=== PATIENT | male | born 1980 | race Two or more races ===

== ENCOUNTER 2021-06-26 05:05 | Inpatient (IN) | payer OTHER, SELFPAY ==
[2021-06-26] VITALS (9 sets, daily range): BP systolic 112–140; BP diastolic 59–84; PULSE 84–95; RESP 11–18; TEMP 38.7–38.8; O2SAT 95–100; BMI 24.8
--- NOTE | ~2021-06-26 | XR_ITS ---
EXAMINATION: XR FEMUR, RIGHT CLINICAL INFORMATION: Pain and swelling COMPARISON: None TECHNIQUE: 2 lateral views of the right femur were obtained. XR/XR femur RT 2V FINDINGS/IMPRESSION: Lateral plate and screws present along the femur transfixing a healed fracture and residual deformity of the diaphysis. Multiple screws present within the distal femur. No evidence of hardware failure or complication. Soft tissues unremarkable.
--- NOTE | ~2021-06-26 | XR_ITS ---
EXAMINATION: XR HAND, RIGHT CLINICAL INFORMATION: Right hand infection COMPARISON: None TECHNIQUE: PA, lateral, and oblique views of the right hand. FINDINGS: No visible acute fracture or dislocation. There appears be soft tissue swelling of the hand. No definite air is seen in the soft tissues. No bony erosive changes of cortical irregularity is identified. Alignment is anatomic. Joint spaces are maintained. Chronic-appearing 2 mm calcification along the radial aspect of the fourth proximal phalanx shaft.. XR/XR hand RT min 3V IMPRESSION: No radiographic evidence of definite osteomyelitis. Suspected soft tissue swelling. Further evaluation with MRI can be obtained, as clinically warranted.
--- NOTE | ~2021-06-26 | XR_ITS ---
EXAMINATION: XR KNEE, RIGHT CLINICAL INFORMATION: Can't bend knee. COMPARISON: None TECHNIQUE: Two views of the right knee. FINDINGS: Plate and screw fixation hardware placed separate cannulated screws are in place at the distal femur. There is prior healed distal femoral diaphyseal fracture. No acute fractures are seen. Alignment of the distal femur and proximal tibia is grossly maintained. Alignment of the patella with the distal femur is not well evaluated on these images. No joint effusion. The soft tissues appear unremarkable. XR/XR knee RT 3V IMPRESSION: No acute fracture. Alignment of the patella with the distal femur is not well evaluated on these images. The tibia and femur are appropriately aligned.
--- NOTE | ~2021-06-26 | MR_ITS ---
EXAMINATION: MRI HAND WITHOUT AND WITH CONTRAST, RIGHT CLINICAL INFORMATION: GAS bacteremia. Evaluate for necrotizing soft tissue infection. COMPARISON: Right hand radiographs dated 06/27/2021. TECHNIQUE: Multisequence MR imaging of the right hand was obtained before and after the IV administration of 7 mL Gadavist contrast on a high-field strength scanner. FINDINGS: There is prominent metallic artifact centered within the soft tissues along the radial aspect of the 4th proximal phalangeal base, corresponding to the previously seen 0.2 cm density on the prior radiograph. Findings likely represent a foreign body. Metallic artifact somewhat limits evaluation of soft tissue structures; however, there is dorsal subcutaneous edema along the metacarpals, more prominent radially. There is no organized fluid collection or evidence of abscess formation. This area demonstrates minimal if any postcontrast enhancement; however, evaluation is limited due to prominent metallic artifact. No abnormal soft tissue mass. The visualized flexor and extensor tendons are intact without evidence of acute injury. The collateral ligaments are grossly intact. No abnormal marrow signal. No evidence of acute osseous injury. No fracture or dislocation. No abnormal marrow enhancement. MR/MR hand RT wo/w con IMPRESSION: 1. Prominent metallic artifact along the radial aspect of the 4th proximal phalangeal base corresponding to the previously seen density on prior radiographs. Findings are consistent with a radiopaque foreign body which measures approximately 0.2 cm. Artifact significantly limits evaluation of the adjacent soft tissue structures. 2. Subcutaneous edema along the dorsal hand, most prominent radially. Minimal if any postcontrast enhancement; however, evaluation limited due to artifact. Findings could represent edema versus mild cellulitis. No abscess formation. 3. No osseous abnormality.
--- NOTE | 2021-06-26 05:48 | PC.NURSE ---
pt to room, chg into gown and awaiting MD's eval. X-ray in room for knee x-ray. Pt crying in pain when moving leg. Pt c/o extreme pain to right knee area which radiates down leg. Pt arrives alert, respirations easy, n/l. skin w/d. will continue to monitor pt.
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
[2021-06-26] MEDS: HYDROmorphone HCl 2 MG/ML VIAL IM (07:07)
[2021-06-26] MEDS: ondansetron HCL 4 MG/2 ML VIAL IVPUSH (07:08)
[2021-06-26 07:27] LABS: MANUAL DIFF FLAG NO
[2021-06-26] MEDS: SODIUM CHLORIDE 2094 ML IV (07:33)
[2021-06-26 07:38] LABS: INTERNATIONAL NORM RATIO 1.1 (0.9-1.1)
[2021-06-26 07:40] LABS: Partial Thromboplastin Time 30.5 SEC (24.1-38.0)
[2021-06-26 07:42] LABS: Lactic Acid 0.9 mmol/L (0.5-2.0)
[2021-06-26 07:47] LABS: COVID-19 Test Negative (Negative); IDNOW Serial# 16C4AD1C
[2021-06-26 07:56] LABS: Basophils Percent Auto 0.2 % (0-2); Eosinophils Percent Auto 0.1 % (0-4); Hematocrit 39.9 % (42.0-52.0); Hemoglobin 13.2 g/dl (14.0-18.0); Imm Gran Abs Auto 0.07 X10*3/uL (0.00-0.03); Imm Gran Pct Auto 0.4 % (0.0-0.4); Lymphocytes Absolute Auto 0.5 X10*3/uL (1.2-4.9); Lymphocytes Percent Auto 2.9 % (20-40); Mean Corpuscular HGB Conc 33.1 g/dl (31.0-36.0); Mean Corpuscular Hemoglobin 27.7 pg (27.0-33.0); Mean Corpuscular Volume 83.8 fL (80.0-98.0); Mean Platelet Volume 10.6 fL (9.4-12.4); Monocytes Absolute Auto 1.2 X10*3/uL (0.1-1.2); Monocytes Percent Auto 6.7 % (2-11); Neutrophils Absolute Auto 15.3 x10*3/uL (2.0-8.3); Neutrophils Percent Auto 89.7 % (45-73); Platelet Count 221 X10*3/uL (160-400); Red Blood Count 4.76 X10*6/uL (4.60-5.80); Red Cell Distribution Width 12.9 % (11.0-16.0); White Blood Count 17.1 X10*3/uL (4.8-10.8)
[2021-06-26] MEDS: HYDROmorphone HCl 2 MG/ML VIAL IVPUSH (08:11)
--- NOTE | 2021-06-26 08:21 | PC.NURSE ---
this literary writer assumed care of this pt at 0730. iv established prior to this literary writer's arrival on shift. fluids hung by this literary writer, med given by this literary writer as documented, vss. This literary writer made 2 attempts to verify pt's stated Methadone dose of 50mg, Methadone clinic did not vegetable picker, will reattempt. will continue to monitor.
[2021-06-26 08:22] LABS: Erythrocyte Sedimentation Rate 8 MM/HR (0-15)
[2021-06-26] MEDS: Ketamine HCl/NS 50 MG/5 ML SYRINGE 140 MG IVPUSH (08:52)
[2021-06-26] MEDS: Lidocaine HCl 1 % MPF 5 ML VIAL INFILTRATI (09:15)
[2021-06-26] MEDS: methADONE HCl 20 MG/2 ML ORAL.CONC 50 MG PO (09:17)
[2021-06-26 09:45] LABS: Alanine Aminotransferase 67 U/L (0-40); Albumin Level 4.1 g/dL (3.5-5.0); Alkaline Phosphatase 196 U/L (39-117); Anion Gap 18 (12-20); Aspartate Amino Transferase 47 U/L (5-37); Bilirubin Total 1.3 mg/dL (0.0-1.0); Blood Urea Nitrogen 9 mg/dL (9-16); Calcium 9.1 mg/dL (8.4-10.2); Carbon Dioxide 22 mmol/L (22-29); Chloride 99 mmol/L (96-108); Creatinine Clr Calc Pharmacy 118.5; Estimated Glomerular Filt Rate > 60; Glucose Random 121 mg/dL (60-115); Lipase 7 U/L (8-78); Potassium 4.2 mmol/L (3.3-5.1); Sodium 135 mmol/L (135-145); Total Protein 7.7 g/dL (6.5-8.0)
[2021-06-26] MEDS: cefTRIAXone sodium 1 GM in 0.9 % Sodium Chloride 50 ML IV (09:51)
[2021-06-26] MEDS: HYDROmorphone HCl 1 MG/ML SYRINGE IVPUSH (09:57)
[2021-06-26] MEDS: vancomycin HCL 1,000 MG in 0.9 % Sodium Chloride 250 ML 270 MG IV ×2 (10:18→21:16)
--- NOTE | 2021-06-26 11:00 | PC.NURSE ---
pt pre-medicated prior to fluid aspiration from right knee. Dr. Daley performed procedure. pre and post vs obtained as documented. vss after procedure. pt placed on 2L n/c with capnography satting 98 - 100%, ET 30. Respiratory Therapist at bedside during procedure. pt NS on the monitor. All consents obtained and signed with Staff spanish interpreter present. Pt difficult stick, LEJ placed by Dr. Daley (18g), iv flushes without difficulty, pt tolerated well. will continue to monitor.
--- NOTE | 2021-06-26 11:07 | PHA.MEDREC ---
Pharmacy Consult ? Medication Reconciliation Pharmacy has completed the medication reconciliation. Spoke with patient in ED via petroleum inspector. Patient reports taking trazodone and clonidine but has not taken in approximately 1 week. He also is on methadone and goes to a clinic on [facility] in [place].
--- NOTE | 2021-06-26 11:12 | PHA.PROG ---
Admission Date/Time: June 26, 2021 10:45 Indication: SKIN AND SKIN STRUCTURE Weight in k.8 kg Adjusted body weight in Kg: [place] body weight in K.8 Obesity Dosing Indication % IBW: Serum Creatinine - Last 168 Hours 06/26/21 09:16 Creatinine 0.74 Estimated CrCl and GFR - Last 168 Hours 06/26/21 09:16 Estim Creat Clear Calc 118.5 Estimated GFR > 60 Vancomycin Loading Dose: FIRST DOSE ALREADY GIVEN IN ED Current Vancomycin Dosing Regimen:1000 MG Q12 HRS Vancomycin Monitoring using AUC goal of 400 - 600 range with trough as surrogate marker: PREDICTED AUC 415 Date and Time for next Vancomycin Level to be drawn: Pharmacist Comments on Vancomycin Plan: Vancomycin dosing will take advantage of [employer] as a clinical decision support tool that uses Bayesian modeling to calculate individual patient's pharmacokinetic parameters and forecast the patient's drug concentration time course with the target goal AUC 24 range of 400 - 600 mg/L/hr.
[2021-06-26] MEDS: Enoxaparin Sodium 40 MG/0.4 ML SYRINGE SUBCUT (11:25)
[2021-06-26] MEDS: Piperacillin Sodium/Tazobactam 4.5 GM in 0.9 % Sodium Chloride 100 ML IV ×2 (12:05→18:00)
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
[2021-06-26] MEDS: 0.9 % Sodium Chloride Flush 3 ML SYRINGE IVFLUSH (16:53)
--- NOTE | 2021-06-26 19:00 | PC.NURSE ---
Pt is A&Ox3, LCA, R hand redness and swelling, pt detective precinct weak due to swelling. Pain 2/10 at this time. R knee with redness, [address] from attempted aspiration last night. Pt states he is unable to ambulate due to the pain. NSR on monitor, +pedal pulses on BLE and BUE at this time. +CMS. Call torres within reach. Will continue to monitor.
[2021-06-26] MEDS: cloNIDine HCL 0.2 MG TABLET PO (21:15)
[2021-06-26] MEDS: traZODone HCL 50 MG TABLET 150 MG PO (21:16)
[2021-06-27] VITALS (8 sets, daily range): BP systolic 84–136; BP diastolic 43–69; PULSE 80–90; RESP 12–18; TEMP 37.3–37.7; O2SAT 94–99
[2021-06-27] MEDS: Piperacillin Sodium/Tazobactam 4.5 GM in 0.9 % Sodium Chloride 100 ML IV ×2 (01:28→06:38)
[2021-06-27] MEDS: 0.9 % Sodium Chloride Flush 3 ML SYRINGE IVFLUSH ×4 (01:28→21:01)
[2021-06-27 06:22] LABS: Basophils Percent Auto 0.1 % (0-2); Eosinophils Percent Auto 0.1 % (0-4); Hematocrit 39.3 % (42.0-52.0); Hemoglobin 12.4 g/dl (14.0-18.0); Imm Gran Abs Auto 0.09 X10*3/uL (0.00-0.03); Imm Gran Pct Auto 0.6 % (0.0-0.4); Lymphocytes Absolute Auto 1.3 X10*3/uL (1.2-4.9); Lymphocytes Percent Auto 9.1 % (20-40); MANUAL DIFF FLAG SCAN; Mean Corpuscular HGB Conc 31.6 g/dl (31.0-36.0); Mean Corpuscular Hemoglobin 27.3 pg (27.0-33.0); Mean Corpuscular Volume 86.4 fL (80.0-98.0); Mean Platelet Volume 10.2 fL (9.4-12.4); Monocytes Absolute Auto 1.6 X10*3/uL (0.1-1.2); Monocytes Percent Auto 10.7 % (2-11); Neutrophils Absolute Auto 11.7 x10*3/uL (2.0-8.3); Neutrophils Percent Auto 79.4 % (45-73); Platelet Count 196 X10*3/uL (160-400); Red Blood Count 4.55 X10*6/uL (4.60-5.80); Red Cell Distribution Width 13.1 % (11.0-16.0); SCAN SMEAR FLAG 1; White Blood Count 14.7 X10*3/uL (4.8-10.8)
[2021-06-27 06:42] LABS: SLIDE REVIEW VERIFIED
[2021-06-27] MEDS: HYDROmorphone HCl 2 MG/ML VIAL 1.5 MG IVPUSH (08:22)
[2021-06-27] MEDS: cloNIDine HCL 0.2 MG TABLET PO (08:24)
--- NOTE | 2021-06-27 08:25 | HE.PHANOTE ---
VANCOMYCIN ADDENDUM ORDERED SERUM CR TODAY AND DAILY, LEVEL ORDERED FOR 1999 TODAY, NO CHANGE TO CURRENT DOSE
[2021-06-27 10:20] LABS: Creatinine Clr Calc Pharmacy 115.4; Estimated Glomerular Filt Rate > 60
[2021-06-27] MEDS: methADONE HCl 20 MG/2 ML ORAL.CONC 50 MG PO (10:25)
[2021-06-27] MEDS: Enoxaparin Sodium 40 MG/0.4 ML SYRINGE SUBCUT (10:26)
[2021-06-27] MEDS: vancomycin HCL 1,000 MG in 0.9 % Sodium Chloride 250 ML 270 MG IV ×2 (10:26→21:01)
--- NOTE | 2021-06-27 10:59 | PM.EVENT ---
Event Note Date of Service: 06/27/21 Event Note: Patient seen at 8:15am right hand appears the same as yesterday, no open area for drainage but there is some tenderness and firmess around injection site right knee no effusion or redness. I am able to palpate the knee without pain but once he awakens he c/o pain. continue monitoring pain in right knee, encourage out of bed and ROM awaiting dr fontaine input for right hand ? I&D - he remains npo
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
--- NOTE | 2021-06-27 12:31 | MHC.RECOVRN ---
Pt presented to [facility] ED on 06/26 due to right knee and right hand pain. Following evaluation, pt admitted for management of cellulitis with gram-positive bacteremia. Pt is on methadone, 50 mg daily, for treatment of OUD. Pt had also reported injecting cocaine. Pt sleeping soundly when t/w attempted to meet with pt. Spoke with pts RN who reports pt has been sleeping the majority of the time since admission and has not offered any complaints of withdrawal. Will continue to follow.
--- NOTE | 2021-06-27 13:00 | CA_ITS ---
Transthoracic Echocardiogram Patient (Last, First, Middle): German Danielle, Gender: Male Date of : 1980 Age: 41 Procedure Date: 06/27/2021 Procedure Type: Transthoracic Echocardiogram Location: S3E Height: 167.64 cm Weight: 69.4 kg BSA: 1.78 m2 Heart Rate: bpm BP: 103 / 56 mmHg Administrative And Program Specialist: Referring MD: Bo Mancia MD Symptoms: GPC bacteremia Study Quality: Good Conclusions: - Normal study Findings Left Ventricle Normal left ventricular size, thickness, systolic function, and wall motion. The visually estimated ejection fraction is between 55-60%. Diastolic function is normal for age. Right Ventricle Normal right ventricular cavity size and systolic function. Atria Both atria are normal in size. Aortic Valve Normal aortic valve structure and function. There is no aortic valve stenosis. There is no aortic valve regurgitation. Mitral Valve Normal mitral valve structure and function. There is no mitral valve regurgitation. There is no mitral valve stenosis. Pulmonic Valve The pulmonic valve is likely normal. There is no pulmonic valve regurgitation. Tricuspid Valve Normal tricuspid valve structure and function. There is no tricuspid valve regurgitation. Tricuspid regurgitation envelope is inadequate for calculation of right ventricular systolic pressure. Normal right atrial pressure. Great Vessels All visible segments of the aorta are normal in size. The visualized portions of the pulmonary artery and branches are normal. Venous The inferior vena cava is normal in size and collapses greater than 50% with inspiration. Pericardium/Pleural There is no evidence of pericardial effusion. Prior Study Comparison No prior study available for comparison. Measurements 2D Linear Measurements IVSd: 0.90 0.6-0.9/0.6-1.0 cm LVIDd: 3.75 3.9-5.3/4.2-5.9 cm LVIDd Index: 2.11 2.4-3.2/2.2-3.1 cm/m2 LVIDs: 2.40 2.0-3.6 cm LVPWd: 0.95 0.7-1.1 cm Ao Root: 3.10 2.1-3.5 cm LA Diam: 3.40 2.7-3.8/3.0-4.0 cm LAIDs Index: 1.91 1.5-2.3 cm/m2 LV Mass: 127.41 67-162/88-224 g LV Mass Index: 71.58 43-95/49-115 g/m2 LVOT Diam: 2.10 3.0+(-)1.3 cm Mitral Valve MV Pk E: 0.78 MV PK A: 0.82 MV Decel Time: 190.00 E/A: 1.00 E'Lateral: 14.70 E'Medial: 12.20 E/E' Med: 6.40 E/E' Lat: 5.30 PHT: 56.00 MVA PHT: 3.93 Decel [place]: 4.10 Aortic Valve AoV Pk Christian: 1.60 AoV Mn Christian: 1.02 AoV VTI: 0.25 AoV Pk Grad: 10.00 Aov Mn Grad: 5.00 EITAN Cont.VTI: 2.86 LVOT LVOT Pk Christian: 1.13 LVOT Mn Christian: 0.75 LVOT VTI: 0.21 LVOT Pk Grad: 5.00 LVOT Mn Grad: 3.00 LVOT Diam: 2.10 LVOT Area: 3.46 Diastolic Function MV Pk E: 0.78 MV Pk A: 0.82 E/A: 1.00 E'Medial: 12.20 E/E' Med: 6.40 E' Laterial: 14.70 E/E' Lat: 5.30 Right Ventricle TAPSE (mm): 23.40 TVS' Christian: 15.80 Tricuspid Valve TR Pk Christian: 2.17 TR Pk Grad: 19.00 Great Vessels Aorta Ao Root-2D: 3.10 2.0-3.7 cm Pulmonary Valve PV Pk Christian: 1.20 Peak PV Grad: 6.00 Updated in Other Vendor System with Status of Final Chip Parikh MD electronically signed on 06/28/2021 4:29:30 PM with status of Final
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
--- NOTE | 2021-06-27 14:23 | P.CDIC_ITS ---
CDI Concurrent Query Documentation Clarification: PHYSICIAN'S DOCUMENTATION REQUEST Date of Query: 06/27/21 1424 Patient Name: German Danielle Admit Date: 06/26/21 Dear Doctor, A review of the medical record indicates additional documentation may be needed. Please review below and update the documentation accordingly. Clinical Indicators: Risk Factors/Clinical Indicators/Treatments WBC 17.1 T 102 Right hand swollen Per ED: R hand cellulitis R knee arthrocentesis done 06/26/21 for right knee pain, per Ortho, no effusion Please clarify which, if any, of the following is the most likely etiology of the above symptoms and treatment rendered: * Sepsis * Systemic manifestations of infection, with 2 or more SIRS criteria which include: - Fever > 100.4F or hypothermia < 96.8 F - Leukocytosis - WBC > 12,000 or leukopenia, WBC < 4,000 or > 10% bands - Tachycardia > 90 beats/minute - Tachypnea - RR > 20 breaths/minute or PaCO2 < 32mmHg (Source: Merck Manual 2013) * Indicate the known or suspected organism * Indicate the known or suspected underlying infection, such as UTI, pneumonia, or cellulitis * Indicate if a suspected bacterial infection of unknown source * Indicate if associated with an implanted device such as a F/C, PICC line, orthopedic hardware, etc. Bacteremia SIRS * Unable to determine Use of terms such as suspected, likely, concern for, or probable (associated with a specific diagnosis that is being evaluated, monitored, or treated as if it exists) are acceptable and can be coded in the inpatient setting, when documented at the time of discharge. Thank you, Jaycee Quinones RN Extension: [phone] Please use your independent medical judgment in providing your response. THIS QUERY IS PART OF THE PERMANENT MEDICAL RECORD Provider Response: Other Other Diagnosis: sepsis was present on admission
--- NOTE | 2021-06-27 15:19 | MHC.CM.PN ---
EMR REVIEWED, PT ADMITTED W/CELLULITIS, PT +BACTEREMIA AND WILL NEED RETIREMENT IV ABX, REFERRALS SENT TO [place], [facility] [place], [facility] WILL FOLLOW PEND BED AVAILABILITY. CM MET W/PT VIA PASTRYCOOK'S ASSISTANT, PT IS GROOGY HOWEVER AWAKENS WHEN NAME IS CALLED, PT REPORTS HE LIVES W/HIS SISTER ADAMA, DENIES USE OF DME AND PT DENIES HOME SERVICES, PT REPORTS HIS METHADONE CLINIC IS [facility] IN [place], PT DENIES HAVING A PCP AND THEN STATES HE MAY HAVE ONE AT [facility] IN [place], THIS CM WILL ASK CM SENIOR VICE PRESIDENT & GENERAL COUNSEL TO VERIFY, PT DENIES HAVING A HCP AND WAS AGREEABLE TO COMPLETE W/CM, PT PROVIDED EDUCATIONAL INFO VIA PASTRYCOOK'S ASSISTANT AND [place] INFORMATIONAL HANDOUT, ORIGINAL AND 2 COPIES, COPY UPLOADED TO [employer] AND PLACED IN CHART. D/C PLAN: STR FOR IV ABX, BLS FOR TRANSPORT HCP: ADAMA ZAYAS (SISTER) [phone] COVID VACCINE: MODERNA X2
[2021-06-27 15:53] LABS: Appearance Urine CLEAR; Color Urine DK YELLOW; Glucose Urine UA NEG (NEG); Leukocyte Esterase Urine NEG (NEG); Nitrite Urine NEG (NEG); Specific Gravity - Urine 1.025 (1.005-1.025); UACC Culture Trigger NO; Urine Blood TRACE (NEG); Urine Ketones NEG (NEG); Urine Protein 1+ MG/DL (NEG-TRACE)
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
[2021-06-27 16:09] LABS: Amphetamine Screen Urine Not Detected (Not Detect); Barbiturates, Urine Not Detected (Not Detect); Benzodiazepines Screen Urine Not Detected (Not Detect); Cannabinoid Screen Urine Not Detected (Not Detect); Cocaine Screen Urine POSITIVE (Not Detect); Fentanyl, urine POSITIVE (Not Detect); Opiate Screen Urine POSITIVE (Not Detect); Phencyclidine Screen Urine Not Detected (Not Detect)
[2021-06-27 16:10] LABS: Amorphous Sediment Urine 2+ /LPF; Mucus Urine 1+ /LPF; RBC Urine 0-2 /HPF (0); Renal Epithelial Cells Urine TRACE /LPF; Squamous Epithelial Cell Urine 1+ /LPF; WBC Urine 0-2 /HPF (0-4)
[2021-06-27] MEDS: SODIUM CHLORIDE 2094 ML IV (17:30)
[2021-06-27 20:27] LABS: Vancomycin Trough 3.9 mcg/mL (10.0-20.0)
--- NOTE | 2021-06-27 20:39 | HE.PHANOTE ---
Vancomycin Dosing Addendum Vancomycin trough 3.9. Increasing dose to 1000 mg q8h for predicted AUC of 461, trough 12.1. next trough 06/28/21 @1900.
[2021-06-27] MEDS: traZODone HCL 50 MG TABLET 150 MG PO (21:01)
[2021-06-28 03:56] VITALS: BP 115/65; PULSE 82; RESP 18; TEMP 37.6; O2SAT 96
[2021-06-28] MEDS: vancomycin HCL 1,000 MG in 0.9 % Sodium Chloride 250 ML 270 MG IV (04:53)
[2021-06-28 05:54] LABS: MANUAL DIFF FLAG NO
[2021-06-28 06:07] LABS: Basophils Percent Auto 0.2 % (0-2); Eosinophils Absolute Auto 0.1 X10*3/uL (0.0-0.4); Eosinophils Percent Auto 0.9 % (0-4); Hematocrit 35.4 % (42.0-52.0); Imm Gran Abs Auto 0.06 X10*3/uL (0.00-0.03); Imm Gran Pct Auto 0.5 % (0.0-0.4); Lymphocytes Absolute Auto 1.1 X10*3/uL (1.2-4.9); Lymphocytes Percent Auto 8.6 % (20-40); Mean Corpuscular HGB Conc 31.1 g/dl (31.0-36.0); Mean Corpuscular Hemoglobin 27.3 pg (27.0-33.0); Mean Corpuscular Volume 87.8 fL (80.0-98.0); Mean Platelet Volume 10.4 fL (9.4-12.4); Monocytes Absolute Auto 1.1 X10*3/uL (0.1-1.2); Monocytes Percent Auto 8.5 % (2-11); Neutrophils Absolute Auto 10.5 x10*3/uL (2.0-8.3); Neutrophils Percent Auto 81.3 % (45-73); Platelet Count 190 X10*3/uL (160-400); Red Blood Count 4.03 X10*6/uL (4.60-5.80); Red Cell Distribution Width 13.2 % (11.0-16.0); White Blood Count 12.9 X10*3/uL (4.8-10.8)
[2021-06-28 06:32] LABS: Alanine Aminotransferase 31 U/L (0-40); Alkaline Phosphatase 121 U/L (39-117); Anion Gap 12 (12-20); Aspartate Amino Transferase 32 U/L (5-37); Bilirubin Total 0.8 mg/dL (0.0-1.0); Blood Urea Nitrogen 6 mg/dL (9-16); C Reactive Protein 22.75 mg/dL (< or = 0.50); Calcium 8.3 mg/dL (8.4-10.2); Carbon Dioxide 24 mmol/L (22-29); Chloride 106 mmol/L (96-108); Creatinine Clr Calc Pharmacy 127.1; Estimated Glomerular Filt Rate > 60; Glucose Random 96 mg/dL (60-115); Potassium 3.7 mmol/L (3.3-5.1); Sodium 138 mmol/L (135-145); Total Protein 5.6 g/dL (6.5-8.0)
[2021-06-28 06:40] LABS: HBS Num1 > 1000.00 mIU/mL (0-7.99); HBsAGNum1 0.24 S/CO (0.00-0.99); HIV AB/AG Nonreactive (Nonreactive); HIV Num 1 0.06 S/CO (0.00-0.99); Hepatitis B Surface Antigen Negative (Negative); ~Hepatitis B Surface Antibody REACTIVE (Nonreactive); ~Hepatitis C Antibody Reactive (Nonreactive)
[2021-06-28 07:28] LABS: HBc Num2 9.42 S/CO; HBc Num3 9.14 S/CO; Hepatitis B Core Antibody Reactive (Nonreactive)
[2021-06-28 07:38] LABS: Erythrocyte Sedimentation Rate 46 MM/HR (0-15)
[2021-06-28 07:45] VITALS: BP 94/53; PULSE 77; RESP 18; TEMP 37.4; O2SAT 98
[2021-06-28] MEDS: methADONE HCl 20 MG/2 ML ORAL.CONC 50 MG PO (08:18)
[2021-06-28] MEDS: 0.9 % Sodium Chloride Flush 3 ML SYRINGE IVFLUSH ×3 (08:19→20:12)
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
[2021-06-28] MEDS: Clindamycin Phosphate/D5W 900 MG/50 ML PIGGYBACK 50 MG IV ×2 (10:49→18:40)
[2021-06-28] MEDS: Enoxaparin Sodium 40 MG/0.4 ML SYRINGE SUBCUT (10:50)
[2021-06-28 11:29] VITALS: BP 118/67; PULSE 109; RESP 18; TEMP 37.1; O2SAT 99
[2021-06-28] MEDS: Penicillin G Potassium 4,000,000 UNIT in 0.9 % Sodium Chloride 100 ML 200 UNIT IV ×4 (12:30→23:51)
[2021-06-28 15:52] VITALS: BP 107/66; PULSE 78; RESP 16; TEMP 38.2; O2SAT 97
[2021-06-28 20:03] VITALS: BP 106/60; PULSE 84; RESP 18; TEMP 37.8; O2SAT 96
[2021-06-28] MEDS: cloNIDine HCL 0.2 MG TABLET PO (20:11)
[2021-06-28] MEDS: traZODone HCL 50 MG TABLET 150 MG PO (20:11)
--- NOTE | 2021-06-28 21:27 | MHC.RECOVSUP ---
MET WITH PT. HE STATES THAT HE IS A LOT BETTER SINCE HE BEEN ON METHADONE. 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 STATED THAT HE WOULD BE INTERESTED IN ONE BUT TO GIVE HIM A DAY TO THINK ABOUT IT.I TOLD HIM THAT I WOULD STOP BY TOMORROW AND WE CAN DISCUSS IF HE STILL IS INTERESTED.
[2021-06-28 23:24] VITALS: BP 99/53; PULSE 75; RESP 18; TEMP 37.9; O2SAT 97
[2021-06-29] MEDS: Clindamycin Phosphate/D5W 900 MG/50 ML PIGGYBACK 50 MG IV ×3 (03:14→18:20)
[2021-06-29 03:49] VITALS: BP 91/55; PULSE 75; RESP 18; TEMP 37.4; O2SAT 97
[2021-06-29] MEDS: Penicillin G Potassium 4,000,000 UNIT in 0.9 % Sodium Chloride 100 ML 200 UNIT IV ×5 (04:15→20:23)
[2021-06-29 05:57] LABS: MANUAL DIFF FLAG NO
[2021-06-29 06:06] LABS: Basophils Percent Auto 0.1 % (0-2); Eosinophils Absolute Auto 0.2 X10*3/uL (0.0-0.4); Eosinophils Percent Auto 1.9 % (0-4); Hematocrit 35.9 % (42.0-52.0); Hemoglobin 11.1 g/dl (14.0-18.0); Imm Gran Abs Auto 0.06 X10*3/uL (0.00-0.03); Imm Gran Pct Auto 0.6 % (0.0-0.4); Lymphocytes Absolute Auto 1.3 X10*3/uL (1.2-4.9); Lymphocytes Percent Auto 13.6 % (20-40); Mean Corpuscular HGB Conc 30.9 g/dl (31.0-36.0); Mean Corpuscular Hemoglobin 27.3 pg (27.0-33.0); Mean Corpuscular Volume 88.4 fL (80.0-98.0); Mean Platelet Volume 9.9 fL (9.4-12.4); Monocytes Absolute Auto 0.9 X10*3/uL (0.1-1.2); Monocytes Percent Auto 9.4 % (2-11); Neutrophils Absolute Auto 6.9 x10*3/uL (2.0-8.3); Neutrophils Percent Auto 74.4 % (45-73); Platelet Count 209 X10*3/uL (160-400); Red Blood Count 4.06 X10*6/uL (4.60-5.80); Red Cell Distribution Width 13.2 % (11.0-16.0); White Blood Count 9.3 X10*3/uL (4.8-10.8)
[2021-06-29 06:19] LABS: Anion Gap 12 (12-20); Blood Urea Nitrogen 6 mg/dL (9-16); Calcium 8.2 mg/dL (8.4-10.2); Carbon Dioxide 25 mmol/L (22-29); Chloride 104 mmol/L (96-108); Creatinine Clr Calc Pharmacy 121.8; Estimated Glomerular Filt Rate > 60; Glucose Random 97 mg/dL (60-115); Potassium 3.8 mmol/L (3.3-5.1); Sodium 137 mmol/L (135-145)
[2021-06-29 07:26] VITALS: BP 111/65; PULSE 66; RESP 16; TEMP 36.7; O2SAT 97
[2021-06-29] MEDS: methADONE HCl 20 MG/2 ML ORAL.CONC 50 MG PO (07:52)
[2021-06-29] MEDS: cloNIDine HCL 0.2 MG TABLET PO ×2 (07:53→20:25)
[2021-06-29] MEDS: 0.9 % Sodium Chloride Flush 3 ML SYRINGE IVFLUSH ×2 (07:56→15:38)
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
[2021-06-29] MEDS: Enoxaparin Sodium 40 MG/0.4 ML SYRINGE SUBCUT (10:38)
--- NOTE | 2021-06-29 10:53 | P.CDIC_ITS ---
CDI Concurrent Query Documentation Clarification: PHYSICIAN'S DOCUMENTATION REQUEST Date of Query: 06/29/21 1053 Patient Name: German Danielle Admit Date: 06/26/21 Dear Doctor, A review of the medical record indicates additional documentation may be needed. Please review below and update the documentation accordingly. Clinical Indicators: Documentation includes the conditions of Sepsis and Bacteremia. Additional clinical indicators in the record include: Risk Factors/Clinical Indicators/Treatments Per query 06/27/21, sepsis present on admission Per ID note 06/27/21: Bacteremia: this is likely related to hand infection blood culture: gram positive cocci x2 Please clarify the relationship between these conditions: * Yes, Sepsis is related to / associated with / due to R hand Group A beta- hemolytic streptococcal bacteremia * No, Sepsis is not related to / associated with / due to R hand Group A beta- hemolytic streptococcal bacteremia * Unable to determine Use of terms such as suspected, likely, concern for, or probable (associated with a specific diagnosis that is being evaluated, monitored, or treated as if it exists) are acceptable and can be coded in the inpatient setting, when documented at the time of discharge. Thank you, Jaycee Quinones RN Extension: [phone] Please use your independent medical judgment in providing your response. THIS QUERY IS PART OF THE PERMANENT MEDICAL RECORD Provider Response: Other Other Diagnosis: sepsis due to GABHS bacteremia with cellulitis
[2021-06-29 11:38] VITALS: BP 98/57; PULSE 73; RESP 18; TEMP 36.5; O2SAT 97
[2021-06-29 15:12] VITALS: BP 101/55; PULSE 65; RESP 18; TEMP 36.6; O2SAT 100
[2021-06-29 19:28] VITALS: BP 106/55; PULSE 80; RESP 20; TEMP 37.4; O2SAT 98
[2021-06-29] MEDS: traZODone HCL 50 MG TABLET 150 MG PO (20:25)
[2021-06-29 23:39] VITALS: BP 101/50; PULSE 70; RESP 16; TEMP 36.3; O2SAT 100
[2021-06-30] MEDS: Penicillin G Potassium 4,000,000 UNIT in 0.9 % Sodium Chloride 100 ML 200 UNIT IV ×3 (00:16→08:35)
[2021-06-30] MEDS: 0.9 % Sodium Chloride Flush 3 ML SYRINGE IVFLUSH ×2 (00:16→08:03)
[2021-06-30] MEDS: Clindamycin Phosphate/D5W 900 MG/50 ML PIGGYBACK 50 MG IV (03:12)
[2021-06-30 04:00] VITALS: BP 100/62; PULSE 61; RESP 16; TEMP 36.5; O2SAT 98
[2021-06-30 06:07] LABS: Creatinine Clr Calc Pharmacy 130.9; Estimated Glomerular Filt Rate > 60
[2021-06-30 08:00] VITALS: BP 109/65; PULSE 61; RESP 18; TEMP 36.8; O2SAT 97
[2021-06-30] MEDS: cloNIDine HCL 0.2 MG TABLET PO (08:01)
[2021-06-30] MEDS: methADONE HCl 20 MG/2 ML ORAL.CONC 50 MG PO (08:01)
[2021-06-30 11:30] VITALS: BP 106/64; PULSE 57; RESP 20; TEMP 36.4; O2SAT 100
[2021-06-30 11:37] VITALS: BP 106/64; PULSE 57; O2SAT 100
[2021-06-30 12:10] LABS: COVID-19 Test Negative (Negative); IDNOW Serial# 16C4AD1C
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
--- NOTE | 2021-06-30 14:02 | MHC.CM.PN ---
PT MEDICALLY CLEARED FOR D/C, PT DECLINING STR AND DOES NOT QUALIFY FOR HOME SERVICES D/T NOT HAVING A PCP, PT ENCOURAGED TO SIGN UP FOR PCP AND PT WILL HAVE FAMILY FOR TRANSPORT.
[2021-07-01 12:27] LABS: HCV Log PCR <1.18 NOT DETECTED Log IU/mL (NOT DETECTED); HepC Viral Load <15 NOT DETECTED IU/mL (NOT DETECTED)
== END 2021-06-30 15:29 | disposition home or self-care (01) | DRG 720 ==
LOC: HO.ED 09:40 → HO.EDOVER 10:51 → HO.S3 21:46
PROVIDERS: Admitting Provider Hospitalist; Emergency Provider Emergency Medicine Emergency Medical Services; Visit Provider Family Medicine
DX: A40.0 Sepsis due to streptococcus, group A (principal); B19.20 Unspecified viral hepatitis C without hepatic coma; M25.861 Other specified joint disorders, right knee; L03.113 Cellulitis of right upper limb; F14.10 Cocaine abuse, uncomplicated; F11.20 Opioid dependence, uncomplicated; F17.210 Nicotine dependence, cigarettes, uncomplicated; Z71.6 Tobacco abuse counseling; Z20.822 Contact with and (suspected) exposure to COVID-19; Z79.899 Other long term (current) drug therapy
CPT/HCPCS: 36415; 73130; 73220; 73552; 73562; 80048; 80053; 80202; 80307; 81001; 82550; 82565; 83605; 83690; 85025; 85027; 85610; 85652; 85730; 86140; 86704; 86706; 86803; 87040; 87071; 87073; 87147; 87186; 87205; 87340; 87389; 87522; 87635; 93306; 96361; 96365; 96372; 96375; 96376; 97162; 99284; 99285; A9585; J0696; J1170; J1650; J2405; J2543; J3370